=== PATIENT | female | born 2000 | race Caucasian/White ===

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

== ENCOUNTER 2018-02-24 08:55 | Emergency (ER) | payer OTHER ==
[2018-02-24 09:07] VITALS: BP 108/61; PULSE 72; TEMP 99; BMI 29.2
--- NOTE | 2018-02-24 09:29 | PDOC ---
History of Present Illness - General Chief Complaint: Cold Symptoms Stated Complaint: FEVER & COUGH Time Seen by Provider: 02/24/18 09:04 - History of Present Illness Initial Comments: 02/24/18 09:23 17 yo F with no PMH presenting with 3 days of cough, fevers, and sore throat. Pt reports tmax of 102 at home. Denies SIMS/neck stiffness. Denies N/V/D. Pt did not have flu shot this year. Denies CP/SOB. Denies dysuria. Denies difficulty swallowing. Past History - Past Medical History Allergies/Adverse Reactions: Allergies Allergy/AdvReac Type Severity Reaction Status Date / Time No Known Allergies Allergy Verified 12/15/17 11:43 Home Medications: Ambulatory Orders NK [No Known Home Medication] 05/18/17 COPD: No - Immunization History Immunization Up to Date: Yes - Suicide/Smoking/Psychosocial Hx Smoking History: Never smoked Have you smoked in the past 12 months: Yes Number of Cigarettes Smoked Daily: 1 'Breaking Loose' booklet given: 05/18/17 Hx Alcohol Use: No Drug/Substance Use Hx: No Substance Use Type: None Review of Systems - Review of Systems Comments:: 02/24/18 09:25 "GENERAL/CONSTITUTIONAL: + fever, no chills. No weakness. HEAD, EYES, EARS, NOSE AND THROAT: + sore throat. No change in vision. No ear pain or discharge. CARDIOVASCULAR: No chest pain or shortness of breath. RESPIRATORY: +cough, no wheezing, or hemoptysis. GASTROINTESTINAL: No nausea, vomiting, diarrhea or constipation. GENITOURINARY: No dysuria, frequency, or change in urination. MUSCULOSKELETAL: No joint or muscle swelling or pain. No neck or back pain. SKIN: No rash NEUROLOGIC: No headache, vertigo, loss of consciousness, or change in strength/ sensation. ENDOCRINE: No increased thirst. No abnormal weight change. HEMATOLOGIC/LYMPHATIC: No anemia, easy bleeding, or history of blood clots. ALLERGIC/IMMUNOLOGIC: No hives or skin allergy. " *Physical Exam - Vital Signs Last Vital Signs Temp Pulse Resp BP Pulse Ox 99.0 F 72 15 108/61 100 02/24/18 09:02 02/24/18 09:02 02/24/18 09:02 02/24/18 09:02 02/24/18 09:02 - Physical Exam Comments: 02/24/18 09:26 "GENERAL: Awake, alert, and fully oriented, in no acute distress HEAD: No signs of trauma EYES: PERRLA, EOMI, sclera anicteric, conjunctiva clear ENT: + erythema to posterior oropharynx, no exudates. Auricles normal inspection , hearing grossly normal, nares patent. Moist mucosa NECK: Nontender, no stepoffs, Normal ROM, supple, no lymphadenopathy, JVD, or masses LUNGS: Breath sounds equal, clear to auscultation bilaterally. No wheezes, and no crackles HEART: Regular rate and rhythm, normal S1 and S2, no murmurs, rubs or gallops ABDOMEN: Soft, nontender, normoactive bowel sounds. No guarding, no rebound. No masses EXTREMITIES: Normal range of motion, no edema. No clubbing or cyanosis. No cords, erythema, or tenderness NEUROLOGICAL: Cranial nerves II through XII intact. 5/5 strength and sensation in all extremities, Normal speech, normal gait, normal cerebellar function SKIN: Warm, Dry, normal turgor, no rashes or lesions noted. " ED Treatment Course - RADIOLOGY Radiology Studies Ordered: Category Date Time Status CHEST PA & LAT [RAD] Stat Radiology 02/24/18 09:14 Ordered Medical Decision Making - Medical Decision Making 02/24/18 09:27 17 yo F with fever, sore throat, cough. Likely viral URI. Pt with mild erythema or posterior oropharynx but no exudates. Unlikely strep, especially given cough , but will r/o with throat culture and rapid strep. - CXR to r/o PNA - Strep test - UA, UPT 02/24/18 10:03 Rapid strep negative UA and UPT negative. 02/24/18 10:25 CXR clear. Pt is well appearing, with normal vitals. Clinically stable for DC at this time. I discussed the physical exam findings, ancillary test results and final diagnoses with the patient. I answered all of the patient's questions. The patient was satisfied with the care received and felt comfortable with the discharge plan and treatment plan. The patient agrees to follow up with the primary care physician within 24-72 hours. *DC/Admit/Observation/Transfer Diagnosis at time of Disposition: URI (upper respiratory infection) - Discharge Dispostion Disposition: HOME Condition at time of disposition: Good - Referrals Referrals: Gregorio Reed MD [Staff Physician] - - Patient Instructions Printed Discharge Instructions: DI for Viral Upper Respiratory Infection -- Adult Additional Instructions: You likely have a viral infection. Take tylenol or motrin for fevers and pain. If you experience worsening or persistent fevers, difficulty swallowing, neck pain, severe headache, or any other concerning symptoms, return to the ER immediately. Otherwise follow up with your primary doctor within 1 week for a re-evaluation. If you do not have one, call the number provided to make an appointment with our primary care doctor. - Post Discharge Activity Forms/Work/School Notes: Back to Work - Attestations Physician Attestion: 02/24/18 09:29 I, Dr. Jean-Pierre Toussaint MD, attest that this document has been prepared under my direction and personally reviewed by me in its entirety. I further attest, that it accurately reflects all work, treatment, procedures and medical decision -making performed by me.
[2018-02-24 09:35] LABS: URINE APPEARANCE Clear; URINE BILIRUBIN Negative (NEGATIVE); URINE GLUCOSE (UA) Negative (NEGATIVE); URINE KETONE Negative (NEGATIVE); URINE LEUK ESTERASE Negative (NEGATIVE); URINE NITRITE Negative (NEGATIVE); URINE PROTEIN Negative (NEGATIVE); URINE UROBILINOGEN 0.2 (0.2-1.0)
[2018-02-24 09:37] LABS: HCG,QUALITATIVE URINE NEGATIVE
[2018-02-24 09:38] LABS: URINE BLOOD Trace-intact (NEGATIVE); URINE COLOR YELLOW
[2018-02-24] MEDS ORDERED: NAPROXEN 500 MG TABLET (FP) PO ONE (09:41)
[2018-02-24] MEDS ORDERED: NAPROXEN 500 MG TABLET (FP) ONE (10:07)
[2018-02-24 12:42] LABS: EPI CELLS FEW /HPF; URINE BACTERIA NONE SEEN /hpf (NEGATIVE); URINE MUCUS 1+; URINE WBC 0-2 (0-5)
== END 2018-02-24 10:33 | disposition home or self-care (01) ==
LOC: FER 08:55
DX: Z72.0 Tobacco use (principal)
CPT/HCPCS: 71046-TC-FY; 81003; 81015; 84703; 87070; 87077; 87430; 99281-25

== ENCOUNTER 2018-04-06 00:08 | Emergency (ER) | payer OTHER ==
[2018-04-06 00:13] VITALS: BP 117/75; PULSE 80; TEMP 98.8; BMI 28.5
[2018-04-06] MEDS ORDERED: IBUPROFEN 600 MG TABLET (FP) PO ONE ×2 (00:22→00:23)
--- NOTE | 2018-04-06 00:26 | PDOC ---
History of Present Illness - General Chief Complaint: Respiratory Stated Complaint: COUGHING,SNEEZING,SORE THROAT Time Seen by Provider: 04/06/18 00:09 - History of Present Illness Initial Comments: This 17-year-old woman without significant past medical history presents with a 4 day history of nonproductive cough, fever, left-sided headache consistent with her usual migraine and sore throat. Patient states that in the last day she has also developed pain in the left lower anterior chest that she feels with deep breathing and cough. No history shortness of breath/wheezing. Patient was noted to have fever to 100 degrees while at work earlier today ( patient works in a longterm); she was given some antipyretic (patient does not know which medication she was given) at work . Since then, she has had no measured fever. Sore throat has developed over the last few days. No history of exposure to school-aged children or strep throat as an adult. No history of gastrointestinal symptoms; patient states that she is trying to drink plenty of water. Patient denies significant past medical history On no medications No known ALLERGIES Patient denies smoking; occasional social alcohol use; denies other recreational drug use Past History - Past Medical History Allergies/Adverse Reactions: Allergies Allergy/AdvReac Type Severity Reaction Status Date / Time No Known Allergies Allergy Verified 04/06/18 00:09 Home Medications: Ambulatory Orders NK [No Known Home Medication] 05/18/17 COPD: No - Immunization History Immunization Up to Date: Yes - Suicide/Smoking/Psychosocial Hx Smoking History: Never smoked Have you smoked in the past 12 months: Yes Number of Cigarettes Smoked Daily: 1 Information on smoking cessation initiated: No 'Breaking Loose' booklet given: 05/18/17 Hx Alcohol Use: Yes (OCCAS.) Drug/Substance Use Hx: No Substance Use Type: None Review of Systems - Review of Systems Able to Perform ROS?: Yes Comments:: 12 point review of systems is negative except for what is noted in the history of present illness *Physical Exam - Vital Signs Last Vital Signs Temp Pulse Resp BP Pulse Ox 98.8 F 80 16 117/75 100 04/06/18 00:10 04/06/18 00:10 04/06/18 00:10 04/06/18 00:10 04/06/18 00:10 - Physical Exam Comments: GENERAL: Young adult female, alert and oriented 3; she is speaking in full sentences and is in no respiratory distress HEAD: Normal with no signs of trauma. EYES: PERRLA, EOMI, sclera anicteric, conjunctiva clear. ENT: Ears normal, nares patent, oropharynx clear without exudates. Moist mucous membranes. NECK: Normal range of motion, supple without lymphadenopathy, JVD, or masses. LUNGS: Breath sounds equal, clear to auscultation bilaterally. No wheezes, and no crackles. CHEST WALL: No rubs, tenderness, step offs HEART:Regular rate and rhythm, normal S1 and S2 without murmur, rub or gallop. ABDOMEN:.normal bowel sounds No guarding,tenderness or rebound.No masses No distention. EXTREMITIES: Normal range of motion, no edema. No clubbing or cyanosis. No erythema, or tenderness. NEUROLOGICAL: Cranial nerves II through XII grossly intact. Normal speech. No focal neurological deficits. MUSCULOSKELETAL: Back non-tender to palpation, no CVA tenderness SKIN: Warm, Dry, normal turgor, no rashes or lesions noted. Progress Note - Progress Note Progress Note: This 17-year-old woman presents with 4 day history of fever and nonproductive cough. She has also had intermittent fever with measured 100F earlier today. She has recently developed soreness in her throat and mild pain in the left anterior chest with deep breathing/cough. No shortness of breath or wheezing noted. She has no risk factors for complicated bronchitis such as asthma history or cigarette smoking. Exam as noted. Pulse oximetry is 100% on room air Patient has well-hydrated mucous membranes as well as normal oropharynx without evidence of erythema/exudates. Lungs are clear with good air exchange. There are no rubs or local tenderness in the area of the left anterior chest wall. Clinical presentation most consistent with acute bronchitis, very likely to be of viral origin. Patient has been advised to rest (no work for the next 48 hours) and drink plenty of water. Because she is complaining of nonproductive cough at night(keeping her from sleeping), she is been advised to use cough syrup with dextromethorphan as needed. Since patient continues to have headache and has no ibuprofen/acetaminophen at home, 600 mg of ibuprofen given here now. Patient continues to have her presenting symptoms in 48 hours, she should follow -up with her medical doctor She should return to the emergency room if she has shortness of breath/wheezing /persistent high fever. *DC/Admit/Observation/Transfer Diagnosis at time of Disposition: Bronchitis - Discharge Dispostion Disposition: HOME Condition at time of disposition: Stable - Referrals - Patient Instructions Printed Discharge Instructions: DI for Acute Bronchitis Additional Instructions: Rest; drink plenty of water Motrin/Tylenol as needed for headache/fever Robitussin-DM cough syrup, take as directed for cough No work for the next 2 days Follow-up with your doctor within 48 hours, especially if you have persistent cough/fever Return to ER if you have difficulty breathing/high fever/wheezing - Post Discharge Activity Forms/Work/School Notes: Back to Work
== END 2018-04-06 00:30 | disposition home or self-care (01) ==
LOC: FER 00:08
DX: J40 Bronchitis, not specified as acute or chronic (principal); Z87.891 Personal history of nicotine dependence
CPT/HCPCS: 99281-25

== ENCOUNTER 2019-02-22 23:47 | Emergency (ER) | payer SELFPAY ==
[2019-02-23] MEDS ORDERED: ONDANSETRON 4 MG/2 ML VIAL IVPUSH ONE (00:36)
[2019-02-23] MEDS ORDERED: ACETAMINOPHEN 1000 MG/100 ML VIAL (NON FORMULARY) IVPB ONE (00:36)
[2019-02-23] MEDS ORDERED: SODIUM CHLORIDE 1,000 ML IV STA ×2 (00:36→04:49)
--- NOTE | 2019-02-23 00:36 | PDOC ---
History of Present Illness - General Stated Complaint: VOMITING Time Seen by Provider: 02/23/19 00:36 History Source: Patient Exam Limitations: No Limitations - History of Present Illness Travel History: No Initial Comments: 02/23/19 00:46 HISTORY OF PRESENT ILLNESS: 18-year-old woman denies medical history presents emergency department for evaluation of right-sided lower abdominal pain nausea and vomiting since approximately 5:00 this evening. Patient noted she felt nauseous throughout the day today intermittently but did not vomit until she returned home from work. She reports the vomiting had been undigested food at first but progressed to bilious vomiting. She denies any blood. Patient reports she also had soft brown stools 2 today. Patient reports her pain is a crampy feeling rated 6/10. She denies any fevers or chills. Patient reports the last menstrual period was "in the middle of January." Patient denies any rectal bleeding, vaginal bleeding, hematuria, dysuria. No recent travel or sick contacts. PAST MEDICAL HISTORY: Denies past medical history SURGICAL HISTORY: Denies ALLERGIES: No known drug allergies REVIEW OF SYSTEMS General/Constitutional: Denies fever or chills. Denies weakness, weight change. HEENT: Denies change in vision. Denies ear pain or discharge. Denies sore throat. Cardiovascular: Denies chest pain or shortness of breath. Respiratory: Denies cough, wheezing, or hemoptysis. Gastrointestinal: see HPI Genitourinary: Denies dysuria, frequency, or change in urination. Musculoskeletal: Denies joint or muscle swelling or pain. Denies neck or back pain. Skin and breasts: Denies rash or easy bruising. Neurologic: Denies headache, vertigo, loss of consciousness, or loss of sensation. Psychiatric: Denies depression or anxiety. Endocrine: Denies increased thirst. Denies abnormal weight change. Hematologic/Lymphatic: Denies anemia, easy bleeding, or history of blood clots. Allergic/Immunologic: Denies hives or skin allergy. Denies latex allergy. PHYSICAL EXAM General Appearance: Well-appearing, appropriately dressed. No apparent distress , no intoxication. HEENT: EOMI, PERRLA, normal ENT inspection, normal voice, TMs normal, pharynx normal. No conjunctival pallor. No photophobia, scleral icterus. Neck: Supple. Trachea midline. No tenderness, rigidity, carotid bruit, stridor , lymphadenopathy, or thyromegaly. Respiratory/Chest: Lungs CTAB. No shortness of breath, chest tenderness, respiratory distress, accessory muscle use. No crackles, rales, rhonchi, stridor , wheezing, dullness Cardiovascular: RRR. S1, S2. No JVD, murmur, bradycardia, tachycardia. Vascular Pulses: Dorsalis-Pedis (R): 2+, Dorsalis-Pedis (L): 2+ Gastrointestinal/Abdominal: Normal bowel sounds. Abdomen soft, non-distended. RLQ tenderness with radiation to the umbilicus upon palpation. No rebound tenderness. No organomegaly, pulsatile mass, guarding, hernia, hepatomegaly, splenomegaly. Lymphatic: No adenopathy, tenderness. Musculoskeletal/Extremities: Normal inspection. FROM of all extremities, normal capillary refill. Pelvis Stable. No CVA tenderness. No tenderness to extremities, pedal edema, swelling, erythema or deformity. Integumentary: Appropriate color, dry, warm. No cyanosis, erythema, jaundice or rash Neurologic: curator herbarium II-XII intact. Fully oriented, alert. Appropriate mood/affect. Motor strength 5/5. No appreciable EOM palsy, facial droop or sensory deficit. Past History - Past Medical History Allergies/Adverse Reactions: Allergies Allergy/AdvReac Type Severity Reaction Status Date / Time No Known Allergies Allergy Verified 02/23/19 01:01 Home Medications: Ambulatory Orders Ondansetron [Zofran Odt -] 4 mg SL BID #14 od.tablet 02/23/19 COPD: No - Immunization History Immunization Up to Date: Yes - Suicide/Smoking/Psychosocial Hx Smoking History: Never smoked Have you smoked in the past 12 months: Yes Number of Cigarettes Smoked Daily: 1 'Breaking Loose' booklet given: 05/18/17 Hx Alcohol Use: Yes (OCCAS.) Drug/Substance Use Hx: No Substance Use Type: None *Physical Exam - Physical Exam Comments:: 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 negative: CMT, discharge, adnexal tenderness, vaginal bleeding ED Treatment Course - LABORATORY CBC & Chemistry Diagram: 02/23/19 01:17 02/23/19 03:00 Medical Decision Making - Medical Decision Making 02/23/19 00:49 A/P: 18-year-old woman with lower abdominal pain nausea and vomiting Differential diagnosis includes but not limited to-appendicitis, ovarian torsion , ectopic , , PID, urinary tract infection, gastroenteritis, obstruction, perforation Basic labs with serum CTAP with IV contrast Urinalysis, urine , urine culture Normal saline 1 L bolus Zofran 4 mg IV Tylenol 1 g IV 02/23/19 05:10 CT as read by imaging interventional physician: No bowel obstruction or inflammation. Negative for diverticulitis or colitis. Normal appendix. Normal kidneys and urinary tract and urinary bladder. There is increased enhancement in the jerome of the uterine body and fundus. Normal heterogeneous enhancement of the uterus skin occur normally but this is somewhat more intense than usual. There is any suspicion of [employer] pathology than ultrasound may be helpful. Normal liver. No obvious gallbladder abnormalities. Normal spleen. Normal pancreas. Normal adrenal glands. No free intraperitoneal air or free fluid. Osseous structures are intact. CMP is normal. CBC notable for leukocytosis with left shift. Given normal abdominal CAT scan, normal pelvic exam and clinical symptoms patient most likely has a gastroenteritis. I'll discharge the patient home with strict return precautions. *DC/Admit/Observation/Transfer Diagnosis at time of Disposition: Gastroenteritis - Discharge Dispostion Disposition: HOME Condition at time of disposition: Fair Decision to Admit order: No - Prescriptions Prescriptions: Ondansetron [Zofran Odt -] 4 mg SL BID #14 od.tablet - Referrals Referrals: Lea Washington MD [Primary Care Provider] - - Patient Instructions Additional Instructions: Rest, drink lots of fluids: Teas, water, soups Vivian fariha, carbonated beverages for the bubbles May try peppermint teas Avoid heavy , spicy or fatty foods until symptoms have resolved Avoid contact with others until fevers and symptoms resolved Lots of handwashing and good hygiene Continue droj-abi-aoznltl medications for symptomatic relief Tylenol or Motrin for fever and pain May use Zofran-one tablet dissolved on tongue as needed for nauseousness. May repeat times one every 8 hours Followup with private physician in one to 2 days as needed Return to emergency department for worsened symptoms, fevers, dehydration - Post Discharge Activity Forms/Work/School Notes: Back to Work
[2019-02-23 01:01] VITALS: BP 117/64; PULSE 76; TEMP 98.5; BMI 25.4
[2019-02-23 01:24] LABS: BASO % 0.2 % (0-2.0); EOS % 0.1 % (0-4.5); HEMATOCRIT 44.2 % (32.4-45.2); LYMPH % 4.2 % (8-40); MCH 31.7 pg (25.7-33.7); MCHC 33.9 g/dl (32.0-36.0); MEAN CELL VOLUME 93.5 fl (80-96); MONO % 3.3 % (3.8-10.2); NEUT % 92.2 % (42.8-82.8); PLATELET COUNT 344 K/MM3 (134-434); RBC 4.72 M/mm3 (3.60-5.2); RDW 12.9 % (11.6-15.6); WHITE BLOOD COUNT 16.3 K/mm3 (4.0-10.0)
[2019-02-23] MEDS ORDERED: ONDANSETRON 4 MG/2 ML VIAL ONE (01:55)
[2019-02-23] MEDS ORDERED: ACETAMINOPHEN INJECTION 100 ML IVPB ONE (01:55)
[2019-02-23 02:03] LABS: EPI CELLS 1.3 /HPF (0-5); URINE APPEARANCE CLEAR; URINE BACTERIA 4.9 /hpf (NEGATIVE); URINE BILIRUBIN NEGATIVE (NEGATIVE); URINE CASTS 4 /hpf (0-8); URINE COLOR YELLOW; URINE GLUCOSE (UA) NEGATIVE (NEGATIVE); URINE KETONE 2+ (NEGATIVE); URINE LEUK ESTERASE NEGATIVE (NEGATIVE); URINE NITRITE NEGATIVE (NEGATIVE); URINE PROTEIN NEGATIVE (NEGATIVE); URINE RBC 5 /hpf (0-4); URINE WBC 1 /hpf (0-5)
[2019-02-23 03:39] LABS: ALBUMIN 3.9 g/dl (3.4-5.0); ALK PHOS 59 U/L (45-117); ANION GAP 9 MMOL/L (8-16); BILIRUBIN,TOTAL 0.8 mg/dL (0.2-1); BLOOD UREA NITROGEN 9 mg/dL (7-18); CALCIUM 8.5 mg/dL (8.5-10.1); CHLORIDE 107 mmol/L (98-107); CO2 23 mmol/L (21-32); CREATININE 0.4 mg/dL (0.55-1.3); GLUCOSE,RANDOM 86 mg/dL (74-106); POTASSIUM 3.6 mmol/L (3.5-5.1); SGOT/AST 9 U/L (15-37); SGPT/ALT 13 U/L (13-61); SODIUM 139 mmol/L (136-145); TOT PROT 7.1 g/dl (6.4-8.2)
[2019-02-23] MEDS ORDERED: morphine CARPU-JECT 2 MG/1 ML DISP.SYRIN IVPUSH ONE (04:49)
[2019-02-23] MEDS ORDERED: MORPHINE SULFATE 2 MG/ML VIAL ONE (05:36)
== END 2019-02-23 05:50 | disposition home or self-care (01) ==
LOC: JER 23:47
PROC: 3E0337Z Introduction of Electrolytic and Water Balance Substance into Peripheral Vein, Percutaneous Approach (ICD-10-PCS; principal; 2019-02-22)
PROC: 3E033GC Introduction of Other Therapeutic Substance into Peripheral Vein, Percutaneous Approach (ICD-10-PCS; 2019-02-22)
PROC: 3E030NZ Introduction of Analgesics, Hypnotics, Sedatives into Peripheral Vein, Open Approach (ICD-10-PCS; 2019-02-22)
PROC: 3E033NZ Introduction of Analgesics, Hypnotics, Sedatives into Peripheral Vein, Percutaneous Approach (ICD-10-PCS; 2019-02-22)
DX: K52.9 Noninfective gastroenteritis and colitis, unspecified (principal)
CPT/HCPCS: 36415; 74177-TC; 80053; 81003; 84702; 84703; 85025; 87086; 99282-25; J0131; J7030

== ENCOUNTER 2019-07-04 23:19 | Emergency (ER) | payer SELFPAY | END 2019-07-04 23:48 | disposition home or self-care (01) | LOC: FER 23:19 ==

== ENCOUNTER 2019-12-06 10:42 | Emergency (ER) | payer OTHER ==
[2019-12-06 10:50] VITALS: BP 122/69; PULSE 75; TEMP 99.1; BMI 23.4
--- NOTE | 2019-12-06 11:02 | PDOC ---
History of Present Illness - General Chief Complaint: Vomiting/Diarrhea Stated Complaint: VOMITING/DIARRHEA Time Seen by Provider: 12/06/19 10:45 - History of Present Illness Initial Comments: 12/06/19 12:11 Chief complaint: Nausea vomiting diarrhea since yesterday HPI: As above. Holding down adequate amounts of fluids. Review of systems: No fever/chills, hematemesis, melena, bloody stool, urinary tract symptoms, vaginal bleeding or discharge. 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 Family history: Reviewed and noncontributory Physical exam: Alert and oriented well-developed well-nourished no acute distress cooperative Afebrile, vital signs normal HEENT normal Neck supple without bruit mass or nodes Chest clear CV regular without murmur rub or gallop Abdomen benign Skin clear, no rash, adequate turgor and wet mucous membranes Extremities no CCE Neurological intact Impression: Viral gastroenteritis, mild, probably contracted at job in senior living Plan: Fluids, symptomatic treatment, Zofran as needed, return to ER if symptoms more severe, otherwise follow-up primary physician as directed. Fully ambulatory in no distress at discharge to follow-up as directed Past History - Past Medical History Allergies/Adverse Reactions: Allergies Allergy/AdvReac Type Severity Reaction Status Date / Time No Known Allergies Allergy Verified 07/04/19 23:20 Home Medications: Ambulatory Orders Ondansetron [Zofran *Odt*] 4 mg SL TID PRN #15 od.tablet 12/06/19 COPD: No - Immunization History Immunization Up to Date: Yes - Psycho Social/Smoking Cessation Hx Smoking History: Current some day smoker Have you smoked in the past 12 months: Yes Number of Cigarettes Smoked Daily: 1 Information on smoking cessation initiated: Yes 'Breaking Loose' booklet given: 05/18/17 Hx Alcohol Use: Yes (OCASIONAL) Drug/Substance Use Hx: No Substance Use Type: None *Physical Exam - Vital Signs Last Vital Signs Temp Pulse Resp BP Pulse Ox 99.1 F 75 17 122/69 100 12/06/19 10:43 12/06/19 10:43 12/06/19 10:43 12/06/19 10:43 12/06/19 10:43 Discharge - Discharge Information Problems reviewed: Yes Clinical Impression/Diagnosis: Viral gastroenteritis Condition: Stable Disposition: HOME - Admission No - Additional Discharge Information Prescriptions: Ondansetron [Zofran *Odt*] 4 mg SL TID PRN #15 od.tablet PRN Reason: Nausea And/Or Vomiting - Follow up/Referral - Patient Discharge Instructions Patient Printed Discharge Instructions: DI for Viral Gastroenteritis -- Adult - Post Discharge Activity Work/Back to School Note: Back to Work
== END 2019-12-06 11:11 | disposition home or self-care (01) ==
LOC: FER 10:42
DX: A08.4 Viral intestinal infection, unspecified (principal)
CPT/HCPCS: 99281-25

== ENCOUNTER 2019-12-23 12:50 | Emergency (ER) | payer OTHER ==
[2019-12-23 12:56] VITALS: BP 132/78; PULSE 96; BMI 24.2
[2019-12-23 13:06] VITALS: TEMP 99.2
--- NOTE | 2019-12-23 13:32 | PDOC ---
History of Present Illness - General Chief Complaint: Vomiting/Diarrhea Stated Complaint: VOMITING, DIARRHEA Time Seen by Provider: 12/23/19 12:53 - History of Present Illness Initial Comments: 12/23/19 13:26 19yo female with 1 episode of nbnb vomiting yesterday around 4p and then 1 episode of diarrhea this AM at 3am. Pt states her mother was dx with the flu and put on tamiflu this week. Pt denies sore throat, rhinorrhea, body aches, fevers, congestion, cough. Pt denies abd pain. States she ate chicken and rice yesterday from a [employer]. Pt works at a [employer]. Pt denies vaginal complaints. Denies urinary complaints. Pt denies abd pain. Has been drinking water this AM without further vomiting, diarrhea or pain. No other complaints. Pmhx: denies Pshx: foot sx all: nkda Past History - Past Medical History Allergies/Adverse Reactions: Allergies Allergy/AdvReac Type Severity Reaction Status Date / Time No Known Allergies Allergy Verified 12/23/19 12:52 Home Medications: Ambulatory Orders Medroxyprogesterone Acetate [Depo-Subq Provera 104] 1 dose SQ ASDIR 12/23/19 COPD: No Other medical history: DENIES - Immunization History Immunization Up to Date: Yes - Psycho Social/Smoking Cessation Hx Smoking History: Never smoked Have you smoked in the past 12 months: No Number of Cigarettes Smoked Daily: 1 Information on smoking cessation initiated: No 'Breaking Loose' booklet given: 05/18/17 Hx Alcohol Use: No Drug/Substance Use Hx: No Substance Use Type: None Review of Systems - Review of Systems Able to Perform ROS?: Yes Is the patient limited R[place]an proficient: No Constitutional: No: Chills, Fever HEENTM: No: Ear Pain, Nose Congestion, Throat Pain Respiratory: No: Cough, Shortness of Breath Cardiac (ROS): No: Chest Pain ABD/GI: Yes: Diarrhea, Nausea, Vomiting, Abdominal cramping : No: Burning, Dysuria Musculoskeletal: No: Back Pain, Muscle Pain Neurological: No: Headache, Numbness, Paresthesia, Tingling, Tremors, Weakness, Ataxia All Other Systems: Reviewed and Negative *Physical Exam - Vital Signs Last Vital Signs Temp Pulse Resp BP Pulse Ox 99.2 F 96 H 18 132/78 99 12/23/19 13:05 12/23/19 12:50 12/23/19 12:50 12/23/19 12:50 12/23/19 12:50 - Physical Exam General Appearance: Yes: Nourished, Appropriately Dressed. No: Apparent Distress HEENT: positive: EOMI, SHIRLEY, Normal Voice, Pharynx Normal Neck: positive: Trachea midline, Supple. negative: Tender, Rigidity Respiratory/Chest: positive: Lungs Clear, Normal Breath Sounds. negative: Chest Tender, Respiratory Distress Cardiovascular: positive: Regular Rhythm, Regular Rate, S1, S2. negative: Edema Gastrointestinal/Abdominal: positive: Normal Bowel Sounds, Soft. negative: Guarding, Rebound, Tenderness Musculoskeletal: positive: Normal Inspection. negative: CVA Tenderness Extremity: positive: Normal Capillary Refill, Normal Inspection Integumentary: positive: Normal Color, Dry, Warm Neurologic: positive: Fully Oriented, Alert, Other (ambulatory with a steady gait) Medical Decision Making - Medical Decision Making 12/23/19 13:31 a/p: 19yo female with 1 episode yesterday of n/v/d -has tolerated water this AM without n/v/d or pain -denies dysuria -pt states she had a depo provera shot in october, but is requesting a preg marissa -denies vaginal complaints -pt is nontoxic with soft nt abd -will po challenge -no labs indicated at this time 12/23/19 13:38 ua and ucg neg 12/23/19 13:55 pt tolerated po intake discussed urine results stable for dc to home pt requesting work note discussed follow up and all reasons to return to the ER Discharge - Discharge Information Problems reviewed: Yes Clinical Impression/Diagnosis: Nausea and vomiting in adult, Diarrhea Condition: Stable Disposition: HOME - Admission No - Follow up/Referral Referrals: Lea Washington MD [Primary Care Provider] - - Patient Discharge Instructions Patient Printed Discharge Instructions: DI for Nausea -- Adult, DI for Vomiting -- Adult, DI for Diarrhea and Traveler's Diarrhea -- Adult Additional Instructions: Please drink plenty of clear liquids today. Please eat the BRAT diet (bananas, rice, apple sauce, and toast) for the next 24 hours. Please avoid fried foods, tomato based products, and spicy foods today. Please slowly advance your diet as tolerated. Please return to the ER with any further concerns or complaints. Please make an appointment to see your PMD this week. - Post Discharge Activity Work/Back to School Note: Back to Work
== END 2019-12-23 14:24 | disposition home or self-care (01) ==
LOC: FER 12:50
DX: R11.2 Nausea with vomiting, unspecified (principal); R19.7 Diarrhea, unspecified
CPT/HCPCS: 81003; 84703; 99283-25

== ENCOUNTER 2021-10-30 14:52 | Emergency (ER) | payer OTHER ==
[2021-10-30 16:15] VITALS: BP 109/72; PULSE 65; TEMP 99.1; BMI 32.0
== END 2021-10-30 16:55 | disposition home or self-care (01) ==
LOC: FER 14:52
DX: B34.9 Viral infection, unspecified (principal); J06.9 Acute upper respiratory infection, unspecified
CPT/HCPCS: 71045-TC-FY; 87804; 99284-25; C9803; U0003; U0005

== ENCOUNTER 2022-01-31 11:40 | Emergency (ER) | payer OTHER ==
[2022-01-31 11:50] VITALS: BP 118/64; PULSE 83; TEMP 98.3; BMI 30.2
[2022-01-31] MEDS ORDERED: ONDANSETRON 4 MG/2 ML VIAL IVPUSH ONE (11:56)
[2022-01-31] MEDS ORDERED: SODIUM CHLORIDE 0.9% 500 ML INFUS.BAG IV ONE ×2 (11:56→13:09)
[2022-01-31] MEDS ORDERED: FAMOTIDINE 20 MG/50 ML IVPB 20 MG/50 ML MG IVPB ONE ×2 (11:56→11:59)
[2022-01-31] MEDS ORDERED: ONDANSETRON 4 MG/2 ML VIAL ONE (11:59)
[2022-01-31 12:17] LABS: HCG,QUALITATIVE URINE Negative
[2022-01-31 12:50] LABS: EPITHELIAL CELLS FEW /hpf
[2022-01-31 12:54] LABS: ALBUMIN 4.5 g/dl (3.4-5.0); BILIRUBIN,TOTAL 0.3 mg/dl (0.2-1); CALCIUM 9.7 mg/dl (8.5-10); CREATININE 0.6 mg/dl (0.55-1.3); TOT PROT 7.7 g/dl (6.4-8.2)
[2022-01-31 14:17] LABS: BASO % 0.6 % (0-2.0); EOS % 2.1 % (0-4.5); HEMATOCRIT 39.7 % (32.4-45.2); HEMOGLOBIN 13.5 GM/dL (10.7-15.3); LYMPH % 37.4 % (8-40); MEAN CELL VOLUME 93.9 fl (80-96); MEAN PLT VOLUME 8.4 fl (7.5-11.1); MONO % 10.7 % (3.8-10.2); NEUT % 49.2 % (42.8-82.8); PLATELET COUNT 326 10^3/uL (134-434); RBC 4.22 M/mm3 (3.60-5.2); RDW 12.9 % (11.6-15.6); WHITE BLOOD COUNT 6.6 K/mm3 (4.0-10.0)
== END 2022-01-31 14:45 | disposition home or self-care (01) ==
LOC: FER 11:40
PROC: 3E033GC Introduction of Other Therapeutic Substance into Peripheral Vein, Percutaneous Approach (ICD-10-PCS; principal; 2022-01-31)
DX: R11.2 Nausea with vomiting, unspecified (principal); R19.7 Diarrhea, unspecified
CPT/HCPCS: 36415; 80053; 81003; 81015; 83690; 84703; 85025; 99284-25

== ENCOUNTER 2022-02-13 13:36 | Emergency (ER) | payer OTHER ==
[2022-02-13 13:43] VITALS: BP 118/70; PULSE 82; TEMP 99.5; BMI 30.2
[2022-02-13] MEDS ORDERED: ACETAMINOPHEN 325 MG TABLET (FP) PO ONE (13:47)
[2022-02-13] MEDS ORDERED: ACETAMINOPHEN 325 MG TABLET (FP) ONE (14:18)
[2022-02-14 18:07] LABS: SARS-CoV-2 NAA Not Detected (Not Detected)
== END 2022-02-13 14:33 | disposition home or self-care (01) ==
LOC: FER 13:36
DX: J06.9 Acute upper respiratory infection, unspecified (principal)
CPT/HCPCS: 87651; 87804; 99283-25; C9803-CS; U0003; U0005

== ENCOUNTER 2022-04-29 09:08 | Emergency (ER) | payer OTHER ==
[2022-04-29 09:24] VITALS: BP 118/74; PULSE 87; TEMP 99.3
[2022-04-29] MEDS ORDERED: KETOROLAC TROMETHAMINE 30 MG/1 ML VIAL IM ONE (09:37)
[2022-04-29] MEDS ORDERED: ACETAMINOPHEN 325 MG TABLET (FP) PO ONE (09:37)
[2022-04-29] MEDS ORDERED: ACETAMINOPHEN 325 MG TABLET (FP) ONE (09:42)
[2022-04-29] MEDS ORDERED: KETOROLAC TROMETHAMINE 30 MG/1 ML VIAL ONE (09:43)
[2022-04-29 10:02] LABS: HCG,QUALITATIVE URINE Negative
[2022-04-29 10:09] LABS: EPITHELIAL CELLS MANY /hpf
== END 2022-04-29 11:27 | disposition home or self-care (01) ==
LOC: FER 09:08
PROC: 3E0233Z Introduction of Anti-inflammatory into Muscle, Percutaneous Approach (ICD-10-PCS; principal; 2022-04-29)
DX: J06.9 Acute upper respiratory infection, unspecified (principal)
CPT/HCPCS: 0241U-QW; 81003; 81015; 84703; 99284-25

== ENCOUNTER 2023-01-26 08:31 | Emergency (ER) | payer OTHER ==
[2023-01-26 08:46] VITALS: BMI 27.7
[2023-01-26] MEDS ORDERED: ONDANSETRON 4 MG/2 ML VIAL IVPB ONE (08:52)
[2023-01-26] MEDS ORDERED: SODIUM CHLORIDE 1,000 ML IV ONE (08:52)
[2023-01-26] MEDS ORDERED: ACETAMINOPHEN 325 MG TABLET (FP) PO ONE (08:57)
[2023-01-26] MEDS ORDERED: ACETAMINOPHEN 1000 MG/100 ML BAG IVPB ONE (09:04)
[2023-01-26] MEDS ORDERED: ONDANSETRON 4 MG/2 ML VIAL ONE (09:07)
[2023-01-26] MEDS ORDERED: ACETAMINOPHEN INJECTION 100 ML IVPB ONE (09:08)
[2023-01-26 09:17] LABS: HCG,QUALITATIVE URINE Negative
[2023-01-26 09:32] LABS: HEMATOCRIT 41.7 % (32.4-45.2); HEMOGLOBIN 14.6 G/dL (10.7-15.3); MCHC 34.9 g/dl (32.0-36.0); MEAN CELL VOLUME 97.4 fl (80-96); PLATELET COUNT 288.7 10^3/uL (134-434); RBC 4.28 10^6/uL (3.60-5.2); WHITE BLOOD COUNT 14.6 10^3/uL (4.0-10.8)
[2023-01-26 09:37] LABS: ALBUMIN 3.8 g/dl (3.4-5.0); CALCIUM 9.2 mg/dl (8.5-10); CREATININE 0.8 mg/dl (0.55-1.3)
[2023-01-26 09:47] LABS: EPITHELIAL CELLS MODERATE /hpf
[2023-01-26 09:54] LABS: PLATELET ESTIMATE ADEQUATE
[2023-01-26 11:49] VITALS: BP 100/60; PULSE 76; RESP 18; TEMP 98.7
== END 2023-01-26 12:14 | disposition home or self-care (01) ==
LOC: FER 08:31
PROC: 3E0333Z Introduction of Anti-inflammatory into Peripheral Vein, Percutaneous Approach (ICD-10-PCS; principal; 2023-01-26)
PROC: 3E033GC Introduction of Other Therapeutic Substance into Peripheral Vein, Percutaneous Approach (ICD-10-PCS; 2023-01-26)
PROC: 3E033GC Introduction of Other Therapeutic Substance into Peripheral Vein, Percutaneous Approach (ICD-10-PCS; 2023-01-26)
PROC: 3E0337Z Introduction of Electrolytic and Water Balance Substance into Peripheral Vein, Percutaneous Approach (ICD-10-PCS; 2023-01-26)
DX: N10 Acute pyelonephritis (principal)
CPT/HCPCS: 0241U-QW; 36415; 76775-TC; 80053; 81003; 81015; 84703; 85027; 87086; 87186; 99284-25

== ENCOUNTER 2023-03-14 17:46 | Emergency (ER) | payer OTHER ==
[2023-03-14 18:03] VITALS: BP 116/69; PULSE 74; RESP 16; TEMP 98.7; BMI 27.7
[2023-03-14] MEDS ORDERED: PHENAZOPYRIDINE HCL 100 MG TABLET (FP) PO ONE (18:24)
[2023-03-14] MEDS ORDERED: SULFAMETHOXAZOLE/TRIMETHOPRIM 800MG/160MG D.S. TABLET PO ONE (18:24)
[2023-03-14 18:26] LABS: EPITHELIAL CELLS FEW /hpf
[2023-03-14] MEDS ORDERED: PHENAZOPYRIDINE HCL 100 MG TABLET (FP) ONE (18:27)
[2023-03-14] MEDS ORDERED: SULFAMETHOXAZOLE/TRIMETHOPRIM 800MG/160MG D.S. TABLET ONE (18:27)
== END 2023-03-14 18:37 | disposition home or self-care (01) ==
LOC: FER 17:46
DX: N30.00 Acute cystitis without hematuria (principal); R30.0 Dysuria; R35.0 Frequency of micturition; R39.15 Urgency of urination; M54.50 Low back pain, unspecified
CPT/HCPCS: 81003; 81015; 87086; 87186; 99283-25

== ENCOUNTER 2023-10-25 10:10 | Emergency (ER) | payer OTHER ==
[2023-10-25] MEDS ORDERED: ACETAMINOPHEN 500 MG TABLET (FP) PO ONE (10:12)
[2023-10-25] MEDS ORDERED: ACETAMINOPHEN 325 MG TABLET (FP) ONE (10:28)
[2023-10-25 11:33] VITALS: BP 164/63; PULSE 69; RESP 16; TEMP 98.7; BMI 35.2
[2023-10-25 12:01] LABS: EPITHELIAL CELLS 0-5 /hpf
[2023-10-25] MEDS ORDERED: CEFTRIAXONE 1,000 MG in DEXTROSE 5%-WATER - 50 ML IVPB ONE (12:07)
[2023-10-25] MEDS ORDERED: CEPHALEXIN MONOHYDRATE 500 MG CAPSULE (UD) PO ONE (12:09)
[2023-10-25] MEDS ORDERED: CEPHALEXIN MONOHYDRATE 500 MG CAPSULE (UD) ONE (12:14)
== END 2023-10-25 12:20 | disposition home or self-care (01) ==
LOC: FER 10:10
DX: J06.9 Acute upper respiratory infection, unspecified (principal); B34.9 Viral infection, unspecified; R50.9 Fever, unspecified; R30.0 Dysuria; R09.81 Nasal congestion; M79.10 Myalgia, unspecified site; R05.9 Cough, unspecified; Z20.822 Contact with and (suspected) exposure to COVID-19
CPT/HCPCS: 0241U-QW; 81003; 81015; 84703; 87086; 87186; 99283-25

== ENCOUNTER 2023-11-16 10:08 | Emergency (ER) | payer OTHER ==
[2023-11-16 10:19] VITALS: BP 100/62; PULSE 68; RESP 17; TEMP 99.1; BMI 32.0
[2023-11-16] MEDS ORDERED: LIDOCAINE 5% TOPICAL PATCH TP ONE (10:21)
[2023-11-16] MEDS ORDERED: ACETAMINOPHEN 325 MG TABLET (FP) PO ONE (10:22)
[2023-11-16] MEDS ORDERED: ACETAMINOPHEN 325 MG TABLET (FP) ONE (10:30)
[2023-11-16] MEDS ORDERED: LIDOCAINE 5% TOPICAL PATCH ONE (10:31)
[2023-11-16 11:30] LABS: EPITHELIAL CELLS 0-5 /hpf
[2023-11-16 11:31] LABS: URINE MUCUS FEW
== END 2023-11-16 12:58 | disposition home or self-care (01) ==
LOC: FER 10:08
DX: O26.891 Other specified pregnancy related conditions, first trimester (principal); M54.50 Low back pain, unspecified; Z3A.01 Less than 8 weeks gestation of pregnancy
CPT/HCPCS: 76775-TC; 76801-TC; 76817-TC; 81003; 81015; 87086; 87186; 99284-25